=== PATIENT | male | born 1950 | race Caucasian/White ===

== ENCOUNTER 2017-05-28 13:06 | Observation (INO) | payer OTHER ==
--- NOTE | 2017-05-28 13:11 | EDPHY ---
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 On arrival the patient was described as having hesitant speech but was able to move extremities. On my evaluation, which was performed immediately on arrival, the patient is alert and opens his eyes spontaneously. He is able to state his name and his age but does not know where he is or how he got here. When asked to raise his left hand he raises his right hand. He is able to move all 4 extremities spontaneously but will not lift either leg off the bed on request. Further history and review of systems is unable on arrival because of the patient's altered mental status and his inability to answer any specific questions. PAST MEDICAL HISTORY: Stroke, per EMS. History of previous venous thromboembolism on anticoagulation. Skull fracture, diverticulitis. Dr. Gardiner' s H&P dated 02/08/2014 personally reviewed. Social history: Business Office Representative, . General Appearance: Alert and opens eyes spontaneously. Eyes: No scleral icterus. Pupils reactive and extraocular motion intact. ENT, Mouth: Normal mucous membranes. Respiratory: Normal respiratory effort, breath sounds equal, lungs are clear to auscultation. Cardiovascular: Regular rate and rhythm. Gastrointestinal: Abdomen is soft and non tender. Neurological: Patient is alert and has spontaneous movement of all 4 extremities. Oriented to self and to age but not to anything else. Skin: Warm and dry, no rashes. Musculoskeletal: No peripheral edema and no joint swelling. Psychiatric: Unable due to altered mental status. Emergency Department course/MDM: Tahir Borden paged immediately. Last known normal per EMS will be 12:40 p.m., the time that they were toned by staff in his office. 1314: Dr. Recinos from [facility], 1321: Old right frontal stroke, Isuani on noncon CT.1435: Admit to [facility] if negative, will rediscuss with [facility] if has a positive angiogram finding. 1358: Isuani, negative CTA for large vessel occlusion. 1426: Jarred 1426 to admit. 1436: [facility] neurology, confirmed Pradaxa per . Recommends MRI to evaluate for stroke. Has known supraclinoid aneurysm. No additional medications now, increase to 200mg bid Vimpat if MRI negative for ischemia. Smoking Status: Never smoked Constitutional: Initial Vital Signs Temperature (C) 36.7 C 05/28/17 13:10 Heart Rate 114 H 05/28/17 13:10 Respiratory Rate 18 05/28/17 13:10 Blood Pressure 155/87 H 05/28/17 13:10 O2 Sat (%) 95 05/28/17 13:10 O2 Delivery Mode Nasal Cannula O2 (L/minute) 2 Allergies/Adverse Reactions: erythromycin base Allergy (Severe, Unverified 05/28/17 15:17) Penicillins Allergy (Verified 02/07/14 18:49) Home Medications: Medication Instructions Recorded Multivitamins [Multivitamin (*)] 1 each PO DAILY 02/07/14 Atorvastatin Calcium [Lipitor 40 40 mg PO HS 05/28/17 mg (*)] Dabigatran Etexilate Mesyl 150 mg PO BID 05/28/17 [Pradaxa 150 MG (*)] Herbals/Supplements -Info Only 1 ea PO DAILY 05/28/17 Lacosamide [Vimpat] 150 mg PO BID 05/28/17 Lact Cmb2/S.thermophl/Bif Cmb1 1 each PO BID 05/28/17 [Vsl#3 Cap (*)] Metoprolol Succinate 25 mg PO HS 05/28/17 Pantoprazole Sodium [Protonix 40mg 40 mg PO BID 05/28/17 (*)] Medical Decision Making - Diagnostics EKG Interpretation: 12-lead EKG interpreted by me; official reading is in trace master. My interpretation is sinus rhythm with multiple PVCs and left axis. Imaging Results: Imaging Impressions Chest X-Ray 05/28/17 13:11 Impression: Possible right upper lobe nodule. This area will be included in a CT angiogram of the neck that will be performed subsequently the same day. Head CT 05/28/17 13:11 Impression: 1. Old infarct right frontal lobe. 2. No acute hemorrhage, hydrocephalus, or mass effect. 3. Cerebrovascular atherosclerosis. 4. No definite acute infarct. 5. Mild cerebral atrophy 6. Consider MRI of the brain without and with contrast enhancement, if there is continued clinical concern. Findings and recommendations discussed with Emergency Department physician, Anshu Duran at 1320 hour, 05/28/2017. Final report concurs with initial preliminary interpretation. Head CTA 05/28/17 13:13 Impression: 1. Mild atherosclerotic disease left carotid bulb, proximal left internal carotid artery, and distal left vertebral artery. 2. No flow-limiting stenosis, occlusion or dissection of bilateral common carotid arteries, internal carotid arteries, or bilateral vertebral arteries. 3. Dominant left vertebral artery without vertebral dissection or occlusion. Measurement of carotid stenosis is based on the residual internal carotid diameter with [place] Symptomatic Carotid Endarterectomy Trial (NASCET) based stenosis levels. CT Angiography of the Brain Clinical Indications: Stroke alert. Technique: CT angiogram of the brain and neck was performed with the uneventful intravenous administration of 85 mL Isovue-370 contrast. Multiplanar reconstructions including 3D reconstructions performed and evaluated on [employer] workstation in order to better evaluate the [place] vessels. Images were manipulated by the radiologist at the computer workstation. Dose reduction techniques were utilized. Findings: Major vessels of the [place] are adequately displayed, demonstrating mild cerebrovascular atherosclerotic plaque bilateral cavernous internal carotid arteries without complete occlusion. Dominant left vertebral artery with patent vertebral artery. Old right frontal lobe infarct with old occlusion of a right M2 branch. No evidence of acute thrombus involving the [place] vessels proximally. Ectasia of the right M2 branch appears similar to previous study. Superior sagittal sinus appears patent. Impression: 1. Mild cerebrovascular atherosclerosis. 2. Old right frontal lobe infarct with old occlusion of the small branch distal right MCA M2 branch. 3. No evidence of acute thrombus of the [place] vessels, bilateral internal carotid arteries, or vertebrobasilar system. 4. Ectatic right M1 artery. Findings and recommendations discussed with Emergency Department physician, Anshu Duran at 1355 hour, 05/28/2017. Final report concurs with initial preliminary interpretation. Neck CTA 05/28/17 13:14 Impression: 1. Mild atherosclerotic disease left carotid bulb, proximal left internal carotid artery, and distal left vertebral artery. 2. No flow-limiting stenosis, occlusion or dissection of bilateral common carotid arteries, internal carotid arteries, or bilateral vertebral arteries. 3. Dominant left vertebral artery without vertebral dissection or occlusion. Measurement of carotid stenosis is based on the residual internal carotid diameter with [place] Symptomatic Carotid Endarterectomy Trial (NASCET) based stenosis levels. CT Angiography of the Brain Clinical Indications: Stroke alert. Technique: CT angiogram of the brain and neck was performed with the uneventful intravenous administration of 85 mL Isovue-370 contrast. Multiplanar reconstructions including 3D reconstructions performed and evaluated on [employer] workstation in order to better evaluate the [place] vessels. Images were manipulated by the radiologist at the computer workstation. Dose reduction techniques were utilized. Findings: Major vessels of the [place] are adequately displayed, demonstrating mild cerebrovascular atherosclerotic plaque bilateral cavernous internal carotid arteries without complete occlusion. Dominant left vertebral artery with patent vertebral artery. Old right frontal lobe infarct with old occlusion of a right M2 branch. No evidence of acute thrombus involving the [place] vessels proximally. Ectasia of the right M2 branch appears similar to previous study. Superior sagittal sinus appears patent. Impression: 1. Mild cerebrovascular atherosclerosis. 2. Old right frontal lobe infarct with old occlusion of the small branch distal right MCA M2 branch. 3. No evidence of acute thrombus of the [place] vessels, bilateral internal carotid arteries, or vertebrobasilar system. 4. Ectatic right M1 artery. Findings and recommendations discussed with Emergency Department physician, Anshu Duran at 1355 hour, 05/28/2017. Final report concurs with initial preliminary interpretation. - Data Points Laboratory Results: Laboratory Results 05/28/17 13:20 05/28/17 05/28/17 13:20 13:04 POC Hgb 16.7 gm/dL gm/dL (13.7-17.5) POC Hct 49 % % (40-51) POC Sodium 144 mEq/L mEq/L (134-144) Sodium 146 mEq/L H mEq/L (134-144) POC Potassium 3.9 mEq/L mEq/L (3.3-5.0) Potassium 4.0 mEq/L mEq/L (3.5-5.2) POC Chloride 109 mEq/L mEq/L (97-110) Chloride 105 mEq/L mEq/L (97-110) Carbon Dioxide 12 mEq/l L mEq/l (22-31) Anion Gap 29 mEq/L H mEq/L (8-16) POC BUN 23 mg/dL mg/dL (7-23) BUN 18 mg/dL mg/dL (7-23) Creatinine 1.1 mg/dL mg/dL (0.7-1.3) POC Creatinine 1.0 mg/dL mg/dL (0.7-1.3) Estimated GFR > 60 Glucose 129 mg/dL H mg/dL (70-100) POC Glucose 127 mg/dL H mg/dL (70-100) Calcium 9.5 mg/dL mg/dL (8.5-10.4) Troponin I < 0.012 ng/mL ng/mL (0.000-0.034) Medications Given: Acetaminophen (Tylenol) 650 mg PO Q4 PRN PRN Reason: Pain, Mild/Fever, Can Take PO Stop: 11/24/17 16:12 Last Admin: 05/28/17 19:41 Dose: 650 mg Sodium Chloride (Ns) 1,000 mls @ 100 mls/hr IV CONT NIRALI Stop: 11/24/17 16:14 Last Admin: 05/28/17 17:50 Dose: 1,000 mls Point of Care Test Results: 05/28/17 13:04 POC Sodium 144 POC Potassium 3.9 POC Chloride 109 POC BUN 23 POC Creatinine 1.0 POC Glucose 127 H Departure - Departure Disposition: [facility] Inpatient Acute Clinical Impression: Seizure Syncope Qualifiers: Syncope type: unspecified Qualified Code(s): R55 - Syncope and collapse Condition: Fair
[2017-05-28] MEDS ORDERED: IOPAMIDOL (ISOVUE 370) 100 ML BTL IV ONE (13:29)
--- NOTE | 2017-05-28 13:30 | CPEKG ---
Heart Rate: 117 RR Interval: 513 QRSD Interval: 92 QT Interval: 336 QTC Interval: 469 QRS [place]: -22 T Wave [place]: 25 EKG Severity - ABNORMAL ECG - EKG Impression: SINUS RHYTHM EKG Impression: RUN OF VENTRICULAR PREMATURE COMPLEXES EKG Impression: BORDERLINE LEFT AXIS DEVIATION Electronically Signed By: Anshu Duran 28-May-2017 14:34:00
[2017-05-28 13:35] LABS: ANION GAP 29 mEq/L (8-16); CALCIUM 9.5 mg/dL (8.5-10.4); CARBON DIOXIDE 12 mEq/l (22-31); CHLORIDE 105 mEq/L (97-110); CREATININE 1.1 mg/dL (0.7-1.3); GLOMERULAR FILTRATION RATE > 60; GLUCOSE 129 mg/dL (70-100); SODIUM 146 mEq/L (134-144)
[2017-05-28 13:43] LABS: % IMMATURE GRANULYOCYTES 0.6 % (0.0-1.1); ABSOLUTE IMMATURE GRANULOCYTES 0.08 10^3/uL (0.00-0.10); ADD DIFF? NO; ADD MORPH? NO; ADD SCAN? NO; ATYPICAL LYMPHOCYTE FLAG 10 (0-99); FRAGMENT RBC FLAG 0 (0-99); HEMATOCRIT 48.2 % (40.0-51.0); HEMOGLOBIN 15.1 g/dL (13.7-17.5); LEFT SHIFT FLG 0 (0-99); LIPEMIA HEMOLYSIS FLAG 80 (0-99); MEAN CELL HEMOGLOBIN 31.6 pg (27.9-34.1); MEAN CELL HEMOGLOBIN CONCENTR. 31.3 g/dL (32.4-36.7); MEAN CELL VOLUME 100.8 fL (81.5-99.8); MEAN PLATELET VOLUME 10.1 fL (8.7-11.7); PLATELET CLUMPS FLAG 0 (0-99); PLATELET COUNT 276 10^3/uL (150-400); RED BLOOD CELL COUNT 4.78 10^6/uL (4.40-6.38); RED CELL DISTRIBUTION WIDTH 14.6 % (11.5-15.2)
[2017-05-28 13:47] LABS: TROPONIN I < 0.012 ng/mL (0.000-0.034)
[2017-05-28 14:16] LABS: INR 1.07 (0.83-1.16); PROTIME(PATIENT) 13.8 SEC (12.0-15.0)
[2017-05-28] MEDS ORDERED: ONDANSETRON 4 MG/2 ML VIAL IVP PRN (16:13)
[2017-05-28] MEDS ORDERED: ACETAMINOPHEN 325 MG TAB PO PRN (16:13)
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
[2017-05-28] MEDS: NS 1,000 ML IV SCH ×2 (17:50→20:42)
[2017-05-28] MEDS: LACOSAMIDE 50 MG TAB PO SCH (20:52)
[2017-05-28] MEDS: DABIGATRAN ETEXILATE MESYL 150 MG CAP PO SCH (20:52)
[2017-05-28] MEDS: VSL#3 1 EACH CAP PO SCH (20:52)
[2017-05-28] MEDS: PANTOPRAZOLE SODIUM 40 MG TAB PO SCH (20:53)
[2017-05-28] MEDS ORDERED: METOPROLOL SUCCINATE XR 25 MG TAB PO SCH (21:00)
[2017-05-28] MEDS ORDERED: ATORVASTATIN CALCIUM 40 MG TAB PO SCH (21:00)
[2017-05-29 06:27] LABS: % IMMATURE GRANULYOCYTES 0.4 % (0.0-1.1); ABSOLUTE IMMATURE GRANULOCYTES 0.03 10^3/uL (0.00-0.10); ADD DIFF? NO; ADD MORPH? NO; ADD SCAN? NO; ATYPICAL LYMPHOCYTE FLAG 0 (0-99); FRAGMENT RBC FLAG 0 (0-99); HEMATOCRIT 40.7 % (40.0-51.0); HEMOGLOBIN 13.4 g/dL (13.7-17.5); LEFT SHIFT FLG 0 (0-99); LIPEMIA HEMOLYSIS FLAG 80 (0-99); MEAN CELL HEMOGLOBIN 31.4 pg (27.9-34.1); MEAN CELL HEMOGLOBIN CONCENTR. 32.9 g/dL (32.4-36.7); MEAN CELL VOLUME 95.3 fL (81.5-99.8); MEAN PLATELET VOLUME 9.6 fL (8.7-11.7); PLATELET CLUMPS FLAG 0 (0-99); PLATELET COUNT 185 10^3/uL (150-400); RED BLOOD CELL COUNT 4.27 10^6/uL (4.40-6.38); RED CELL DISTRIBUTION WIDTH 14.8 % (11.5-15.2)
[2017-05-29 06:44] LABS: ANION GAP 8 mEq/L (8-16); CALCIUM 8.8 mg/dL (8.5-10.4); CARBON DIOXIDE 24 mEq/l (22-31); CHLORIDE 110 mEq/L (97-110); CREATININE 0.8 mg/dL (0.7-1.3); GLOMERULAR FILTRATION RATE > 60; GLUCOSE 88 mg/dL (70-100); POTASSIUM 4.2 mEq/L (3.5-5.2); SODIUM 142 mEq/L (134-144)
[2017-05-29] MEDS ORDERED: MULTIVITAMINS 1 EACH TAB PO SCH (09:00)
[2017-05-29] MEDS: LACOSAMIDE 50 MG TAB PO SCH (09:46)
[2017-05-29] MEDS: VSL#3 1 EACH CAP PO SCH (09:46)
[2017-05-29] MEDS: DABIGATRAN ETEXILATE MESYL 150 MG CAP PO SCH (09:46)
[2017-05-29] MEDS: PANTOPRAZOLE SODIUM 40 MG TAB PO SCH (09:46)
[2017-05-29] MEDS ORDERED: FLU VACC QS 2017-18 (3YR+)/PF 0.5 ML SYR (FLUARIX QUAD) IM ONE (09:56)
[2017-05-29 10:34] LABS: CHOLESTEROL 144 mg/dL (140-220); CHOLESTEROL/HDL RATIO 3.79 RATIO (1.00-4.97); HIGH DENSITY LIPOPROTEIN 38 mg/dL (40-65); LDL/HDL RATIO 2.24 RATIO (1.00-3.64); LOW DENSITY LIPOPROTEIN 85 mg/dL (80-100); NON-HIGH DENSITY LIPOPROTEIN 106 mg/dL (90-129); TRIGLYCERIDE 108 mg/dL (40-150); VERY LOW DENSITY LIPOPROTEINS 21 mg/dL (8-25)
[2017-05-29 15:52] VITALS: BP 112/71; PULSE 71; RESP 15; TEMP 98; O2SAT 94
--- NOTE | 2017-05-29 16:58 | ASMTCMCOM ---
CM Note CM Note Notes: Chart reviewed. Admitted with symptoms of TIA. Resolved. Per PT and OT no needs identified. Cm available should needs arise. Date Signed: 05/29/2017 04:58 PM Electronically Signed By:Michelle Moran RN
[2017-05-29] MEDS ORDERED: ASPIRIN EC 81 MG TAB PO SCH (17:45)
--- NOTE | 2017-05-29 18:46 | PDDCSUM ---
Discharge Summary Discharge Summary: DISCHARGE DIAGNOSES: -acute seizure in patient with chronic seizure disorder -acute cerebellar lacunar infarct -prior history of ischemic strokes -on chronic anticoagulation for recurrent thromboembolic disease -carotid atherosclerosis nonflow limiting CONSULTANTS: PROCEDURES: CT of head with no acute abnormality CT angiography of head and neck with mild non flow limiting atherosclerosis MRI of brain showing acute lacuar infarct HOSPITAL COURSE SUMMARY: Patient presented with an acute seizure while on his usual antiepiletpic medicine. He was found to have an otherwise asymptomatic cerebellar lacunar stroke with unremarkable neuroloic exam. There was no A Fib on card monitoring. He was not on platelet inhibitor medicine. He is on chronic anticoagulation and statin medicines. There were no findings of severe atherosclerosis. He was observed with no further seizures, and no further neurologic episodes. Blood pressures were in normal range. He is felt to be stable for discharge to home. He is aware not to drive until clearred by his neurologist. He is aware not to perform any medical procedures until cleared as well. PENDING TEST RESULTS: none MEDICATION CHANGES: addition of daily aspirin 81 mg FOLLOW-UP PLAN: with his assistant professor of anthropology and neurologist within one week Greater than 35 minutes bedside and care coordination time today
== END 2017-05-29 18:00 | disposition home or self-care (01) ==
LOC: EDUNIT# → INTOOBSV 14:30 → F2N 16:54
PROVIDERS: ADMIT Internal Medicine; ATTEND Internal Medicine
DX: G40.909 Epilepsy, unspecified, not intractable, without status epilepticus (principal); I63.8 Other cerebral infarction; I65.29 Occlusion and stenosis of unspecified carotid artery; Z79.01 Long term (current) use of anticoagulants; Z23 Encounter for immunization; Z86.711 Personal history of pulmonary embolism; Z86.718 Personal history of other venous thrombosis and embolism
CPT/HCPCS: 70450; 70496; 70498; 70551; 71010; 90471; 93005; 97161; 97165; G0378; 82947-QW; G0008; Q9967